=== PATIENT | male | born 2000 | race Caucasian/White ===

== ENCOUNTER 2021-05-24 14:26 | Outpatient (CLI) | payer OTHER, BC, SELFPAY | END 2021-05-24 14:27 | disposition home or self-care (01) | LOC: ANHAUDASC 14:28 | PROVIDERS: PCP Internal Medicine; Visit Provider Otolaryngology | DX: H69.81 Other specified disorders of Eustachian tube, right ear (principal) | CPT/HCPCS: 92557; 92567 ==

== ENCOUNTER 2024-05-25 21:27 | Emergency (ER) | payer BC, SELFPAY ==
[2024-05-25 22:32] VITALS: BP 113/63; PULSE 63; RESP 20; TEMP 36.8; O2SAT 100
== END 2024-05-26 04:01 | disposition left against medical advice (07) ==
LOC: ANHED 05-26 03:54
PROVIDERS: PCP Internal Medicine
DX: S61.216A Laceration without foreign body of right little finger without damage to nail, initial encounter (principal); W55.03XA Scratched by cat, initial encounter
CPT/HCPCS: 99199

== ENCOUNTER 2024-08-17 09:59 | Emergency (ER) | payer OTHER, SELFPAY ==
--- NOTE | ~2024-08-17 | XR_ITS ---
EXAMINATION: XR lumbar spine 2-3V DATE: 08/17/2024 10:44 INDICATION: Mid lumbar back pain TECHNIQUE: Anteroposterior and lateral views of the lumbar spine, and cone-down lateral view of the l umbosacral junction were obtained. COMPARISON: None. FINDINGS: 304 mm retrolisthesis L5 on S1. Alignment is otherwise normal. Vertebral body heights are normal. Mil d disc height loss at L5-S1. Mild osteoarthritis at a few of the lumbar facet joints. Bilateral hip a nd sacral iliac joint spaces appear relatively preserved. Soft tissues are unremarkable. IMPRESSION: 1. Mild lumbar facet osteoarthritis and mild disc height loss at L5-S1. Reviewed, dictated and finalized at location A. TESY CLERK
[2024-08-17 10:19] VITALS: BP 110/66; PULSE 64; RESP 16; TEMP 36.8; O2SAT 100
--- NOTE | 2024-08-17 10:29 | ED_ITS ---
HPI - Back Pain/Injury General Chief Complaint: Back Pain/Injury Stated Complaint: BACK PAIN Time Seen by Provider: 08/17/24 10:29 Source: patient, RN notes reviewed and old records reviewed Mode of arrival: ambulatory Limitations: no limitations History of Present Illness HPI Narrative: 24 year old male patient presents to [facility] care with complaints of lower mid lumbar back pain which started yesterday while at work around noon Patient reports that he did his first job of the day and was starting the 2nd when he felt the sharp pain to his back. Patient denies any known specific injury to his back. He states that he has been applying ice to his back, Patient denies any radiation of pain to his legs did have episode of sharp pain to the back of his thighs down to posterior knees fleeting. Patient has no radiation of pain in his buttock and no pain with palpation over SI joints. MD elicited complaint: back pain Onset (ago): day(s) (2) Pain scale (0-10): 5 Quality: sharp and aching Location: lumbar spine Related Data Allergies Allergy/AdvReac Type Severity Reaction Status Date / Time No Known Allergies Allergy Verified 08/17/24 10:31 Review of Systems Review of Systems: CONSTITUTIONAL: Denies fever, chills, or sweats. EYES: Denies visual changes, redness, or discharge. ENT: Denies rhinorrhea, congestion, sore throat, or otalgia. CARDIOVASCULAR: Denies chest pain, palpitations, or edema. RESPIRATORY: Denies cough or dyspnea. GASTROINTESTINAL: Denies abdominal pain, nausea, vomiting, or diarrhea. GENITOURINARY: Denies dysuria or hematuria. SKIN: Denies rash or itching. MUSCULOSKELETAL: Reports mid lower lumbar back pain,, or myalgia. NEUROLOGIC: Denies headache, numbness, or weakness. PSYCHIATRIC: Denies anxiety or depression. All systems reviewed & are unremarkable except as noted in HPI and below PMFSH Past Medical History Medical History (Updated 08/18/24 @ 08:08 by Alena Kendrick NP) Ear infection Surgical History Surgical History (Updated 08/18/24 @ 07:55 by Alena Kendrick NP) History of placement of ear tubes x2 History of tonsillectomy and adenoidectomy S/P reconstruction of ACL of right knee using bone-patellar tendon-bone autograft Family History Family History Father Alcoholism Mother Depression Thyroid disorder Sibling Alcoholism Asthma Grandparent Cancer Depression Hypertension Grandparent Diabetes mellitus Heart disease Social History Social History (Updated 08/18/24 @ 07:52 by Alena Kendrick NP) Tobacco type: e-cigarettes/vaping Alcohol intake: current Substance use type: does not use Gender identity (if verbalized by the patient): Male Comments At time of signature, agree with nursing past medical, surgical, social and family history. There is no relevant family history pertinent to the presenting complaint Exam Narrative: GENERAL: Well-appearing, well-nourished, and in no acute distress. HEAD: Normocephalic, atraumatic. EYES: PERRLA and EOMI. ENT: Nares clear, no rhinorrhea or epistaxis. Mucous membranes moist. NECK: Supple.n lymphadenopathy CHEST: Clear to auscultation. No respiratory distress.SAO2 100% on room air HEART: Regular rate and rhythm. No murmur heard. Normal peripheral pulses. ABDOMEN: Soft, nontender, nondistended, normal active bowel sounds. EXTREMITIES: Normal range of motion. No edema.Positive for lower mid lumbar back pain increases with changing positions and worse when standing, denies any tingling or numbness to lower extremities, states occasional pain in the back of legs to knees denies any SI joint pain or any pain to buttocks, Patient reports no difficulty passing urine or with bowel movements, denies any saddle paraesthesia. SKIN: Warm, dry, no rash. NEURO: No focal deficits. Alert and oriented x3. Course Course Emergency Course: Patient is aware of diagnosis, understands and agrees to treatment plan.? Anticipatory guidance given.? Patient agrees to follow-up as directed and is aware of reasons to seek care at the emergency department. Portions of this record may have been created with voice recognition software Level of Care: Express Care Visit Vital Signs Vital signs: Vital Signs Temperature 36.8 C 08/17/24 10:19 Pulse Rate 64 08/17/24 10:19 Respiratory Rate 16 08/17/24 10:19 Blood Pressure 110/66 08/17/24 10:19 Pulse Oximetry 100 08/17/24 10:19 Temperature 36.8 C 08/17/24 10:19 Pulse Rate 64 08/17/24 10:19 Respiratory Rate 16 08/17/24 10:19 Blood Pressure 110/66 08/17/24 10:19 Pulse Oximetry 100 08/17/24 10:19 Reviewed MDM - Back Pain/Injury Differential Diagnosis Differential diagnosis: Likely lumbar radiculopathy, strain of lumbar region and other (mid lower lumbar back painl, osteoarthritis back) Medical Records Attestation: I reviewed the patient's medical records. Imaging Data Attestation: I personally reviewed and interpreted this imaging study as follows: My impression: mild lumbar facet osteoarthritis, mild loss of disc height L5-S1 [facility] [address] [facility] [place] [address] XRay Report Signed Patient: Presley Scott Jr. : 2000 MR#: [id number] Age: 24 Acct:[id number] Loc: [id number] ADM Date: 08/17/24Attending Dr: Ordering Physician: Alena Kendrick APRN Date of Service: 08/17/24 Procedure(s): XR lumbar spine 2-3V Accession Number(s): [id number] cc: Alena Kendrick APRN; Cristal Penny MD~ EXAMINATION: XR lumbar spine 2-3V DATE: 08/17/2024 10:44 INDICATION: Mid lumbar back pain TECHNIQUE: Anteroposterior and lateral views of the lumbar spine, and cone-down lateral view of the lumbosacral junction were obtained. COMPARISON: None. FINDINGS: 304 mm retrolisthesis L5 on S1. Alignment is otherwise normal. Vertebral body heights are normal. Mild disc height loss at L5-S1. Mild osteoarthritis at a few of the lumbar facet joints. Bilateral hip and sacral iliac joint spaces appear relatively preserved. Soft tissues are unremarkable. IMPRESSION: 1. Mild lumbar facet osteoarthritis and mild disc height loss at L5-S1. Reviewed, dictated and finalized at location A. 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 Dictated By: Jono Medrano MD 08/17/24 1047 Signed By: <Electronically signed by Jono Medrano MD in OV> Critical Care Time Critical Care Time Critical Care Time: No Discharge Plan Discharge Clinical Impression: Acute lumbar back pain Qualifiers: Back pain laterality: midline Sciatica presence: without sciatica Qualified Code(s): M54.50 - Low back pain, unspecified Patient Disposition: Home, Self-Care Condition: Stable Instructions: Antibiotic Form, Acute Low Back Pain (ED), Lower Back Exercises (ED) Additional Instructions: Ice and heat to the area for 20-30 minutes Gentle stretching exercises Gentle massage Caution with lifting, bending, stooping, twisting Avoid pushing, pulling take muscle relaxants as directed--caution drowsiness and no driving or alcohol Anti-inflammatory medicine as directed--take with food He may take the muscle relaxant and anti-inflammatory at the same time Follow-up with your PCP if not improving in 5-7 days steroids as prescribed take with food Patient Language: Faroese Prescriptions: New prednisone 20 mg tablet 20 mg PO BID Qty: 10 0RF Rx Instructions: take with food am and pm dose no later that 1800 cyclobenzaprine 10 mg tablet 10 mg PO HS PRN (Reason: muscle spasm) Qty: 14 0RF Rx Instructions: take at bedtime Can not drink any alcohol while taking and must not drive or operate machinery Follow-up/Referrals: Cristal Penny MD [Primary Care Provider] - Stand Alone Forms: Work/School Release IP Time of Disposition: 11:22 Quality [place] Coma Scale Eyes: Open Verbal: Oriented and Alert Motor: Follows Commands [place] Coma Total Score: 15
== END 2024-08-17 11:26 | disposition home or self-care (01) ==
PROVIDERS: Emergency Provider Registered Nurse; PCP Internal Medicine
DX: M54.50 Low back pain, unspecified (principal); F17.290 Nicotine dependence, other tobacco product, uncomplicated
CPT/HCPCS: 72100; 99213; G0463